=== PATIENT | male | born 1980 | race Caucasian/White ===

== ENCOUNTER 2022-09-14 17:36 | Emergency (ER) | payer OTHER, MEDICAID ==
[~2022-09-14] VITALS: Ht 180.3 cm; Wt 77.1 kg
[2022-09-14 19:59] VITALS: BP 130/84
== END 2022-09-14 20:00 | disposition home or self-care (01) ==
LOC: ED 17:36
DX: S46.912A Strain of unspecified muscle, fascia and tendon at shoulder and upper arm level, left arm, initial encounter (principal); Y35.813A Legal intervention involving manhandling, suspect injured, initial encounter
CPT/HCPCS: 73030; 99283-25